=== PATIENT | male | born 1970 | race Caucasian/White ===

== ENCOUNTER → 2025-09-11 | Outpatient (CLI) | payer OTHER ==
[2025-09-11 11:41] LABS: Creatinine, Urine Random 176.0 mg/dL (27.00-270.00); Microalb/Creat Ratio UR, Rand 3.114 mg/g (0.000-30.000); Microalbumin, Random Urine 5.48 mg/L (0.000-20.000)
== END | disposition home or self-care (01) ==
LOC: LAB 08:51 → LAB SHORT 08:51
PROVIDERS: Student in an Organized Health Care Education/Training Program
DX: N28.9 Disorder of kidney and ureter, unspecified (principal)
CPT/HCPCS: 82043; 82570